=== PATIENT | female | born 1985 | race Hispanic/Latino ===

== ENCOUNTER 2024-08-12 18:37 | Observation (INO) | payer BC, SELFPAY ==
[2024-08-12] VITALS (10 sets, daily range): BP systolic 134–162; BP diastolic 77–93; PULSE 87–101; RESP 16–18; TEMP 36.7–37.1; BMI 38.0
[2024-08-12 17:16] LABS: Protein, Urine (Random) < 6.0 mg/dL (<11.9); Protein:Creat Ratio 217 mg/g CRE (0-200)
[2024-08-12 17:37] LABS: Hematocrit 32.4 % (37-47); Mean Corpuscular Hgb 26.8 pg (27.0-32.0); Mean Corpuscular Volume 78.8 fL (81-99); Mean Platelet Vol. 11.5 fl (6.2-12.0); Platelet Count 242 K/mm3 (150-450); RBC Distribution Width CV 14.4 % (11.6-14.6); RBC Distribution Width SD 40.7 fl (35.1-43.9); Red Blood Count 4.11 M/mm3 (4.2-5.4); White Blood Count 14.7 K/mm3 (4.4-11.0)
[2024-08-12 17:56] LABS: AST(SGOT) 10 U/L (15-37); Alanine Aminotransfer ALT/SGPT 13 U/L (13-56); Creatinine, Serum 0.48 mg/dL (0.55-1.02); EST Glomerular Filtration Rate 155 mL/min (>60); Est Glom Filt Rate - Afr Amer 187 mL/min (>60); Estimated Creatinine Clearance 184.98 ml/min; Uric Acid 3.7 mg/dL (2.6-6.0)
--- NOTE | 2024-08-12 18:35 | PCM.HP.OB ---
HPI - General General Date of Service: 08/12/24 Chief Complaint: elevated BP at home HPI Narrative LAWRENCE ESCALANTE, is a 38 F who presents with elevated BP at home. She has possible underlying cHTN. Had elevated blood pressure November 2023 and then at 9 week gestation. She was given a blood pressure cuff to check her blood pressures at home given concern for cHTN. She reports elevated blood pressures over the weekend but she thought she was not using the cuff correctly. Today she had a blood pressure in 160's at home and called into the office. She was instructed to come to L&D for evaluation. She feels well. She is anxious regarding blood pressures and being on L&D. She denies MOCK, vision changes, upper abdominal pain, N/V, malaise. Denies ctx, vb, lof. Good FM. She feels well. PFSH PFSH Home Medications ?Medication ?Instructions ?Recorded ?Last Taken ?Type ferrous sulfate 325 mg (65 mg 325 mg PO QODAY 08/12/24 08/09/24 11:00 History iron) tablet (Feosol) 325 mg Allergy/AdvReac Type Severity Reaction Status Date / Time shrimp Allergy Severe Other Verified 08/12/24 16:38 NST FHR Rate Baby A Baseline: 150 Variability:: Moderate Accelerations:: 15 x 15 Decelerations:: None NST Reactive:: Yes FHR Category:: Category I Uterine Activity:: irregular Vital Signs Vital Signs Vital Signs: 08/12/24 16:30 08/12/24 16:30 08/12/24 16:30 Temperature 98.4 F Temperature Source Temporal Pulse Rate Respiratory Rate 18 Blood Pressure BP Systolic BP Diastolic 08/12/24 16:48 08/12/24 16:48 08/12/24 16:56 Temperature Temperature Source Pulse Rate 96 Respiratory Rate Blood Pressure 162/93 H 153/80 H BP Systolic 162 153 BP Diastolic 93 80 08/12/24 16:56 08/12/24 17:14 08/12/24 17:14 Temperature Temperature Source Pulse Rate 88 93 Respiratory Rate Blood Pressure 153/92 H BP Systolic 153 BP Diastolic 92 08/12/24 17:28 08/12/24 17:28 08/12/24 17:44 Temperature Temperature Source Pulse Rate 88 Respiratory Rate Blood Pressure 144/82 H 137/78 H BP Systolic 144 137 BP Diastolic 82 78 08/12/24 17:44 08/12/24 17:58 08/12/24 17:58 Temperature Temperature Source Pulse Rate 87 87 Respiratory Rate Blood Pressure 152/91 H BP Systolic 152 BP Diastolic 91 Weight Weight: 221 lb 9.033 oz Body Mass Index (BMI) 38.0 Physical Exam Const alert and no apparent distress Constitutional Narrative: anxious General Appearance: comfortable HEENT normocephalic Resp normal respiratory effort GI soft to palpation, non-tender and non-distended Extremity normal to inspection Neuro deep tendon reflexes 2+ bilaterally Labs Labs Labs: Hct 32.4 % (37-47) L Hgb 11.0 g/dL (12.0-15.0) L Assessment & Plan (1) 31 weeks gestation of : (2) Elevated blood pressure affecting , antepartum: PLAN: First blood pressure was severe range, followed by mild range blood pressures. Discussed concern for underlying cHTN vs gHTN. She has no symptoms of pre eclampsia and feels well. Labs WNL and without evidence of pre eclampsia. Reflexes 2+ on exam and no significant swelling. Will start Procardia 30 mg and BMZ x 2 after discussion of r/b/a with patient. Admit patient for observation overnight. Questions answered and patient well counseled and agreeable to plan of care. Discussed indications for delivery. Discussed if stable and discharged to home tomorrow, will need blood pressure check later this week in the office and to bring her BP cuff with her to appointment. SCD's for DVT prophylaxis. Saline lock IV. Ok for regular diet at this time. (3) Obesity affecting :
[2024-08-12] MEDS: Betamethasone/Betamethasone 30 MG/5 ML Vial 12 MG IM (18:55)
[2024-08-12] MEDS: NIFEdipine 30 MG Tablet PO (19:44)
[2024-08-13 02:05] VITALS: BP 145/90; PULSE 91; RESP 16; TEMP 36.9
[2024-08-13 06:01] VITALS: BP 134/79; PULSE 102; RESP 16; TEMP 36.6
[2024-08-13 08:13] VITALS: BP 124/79; PULSE 96; RESP 18; TEMP 36.8
[2024-08-13 08:25] VITALS: PULSE 100; O2SAT 97
[2024-08-13 08:37] VITALS: BP 124/79; PULSE 96; RESP 18; TEMP 36.8
--- NOTE | 2024-08-13 08:52 | PN.OBGYN_ITS ---
Subjective Subjective Denies complaints Objective Data Objective Data Vital Signs: Vital Signs Temp Pulse Resp BP Pulse Ox O2 Del Method 98.2 F 96 18 124/79 H 97 Room Air 08/13/24 08:37 08/13/24 08:37 08/13/24 08:37 08/13/24 08:37 08/13/24 08:25 08/13/24 08:37 Oxygen Delivery Method Room Air Weight: 221 lb 9.033 oz Body Mass Index (BMI) 38.0 Lab / Micro Data 08/12/24 17:25 08/12/24 17:25 Labs: Laboratory Results - last 24 hr 08/12/24 16:45: U Random Total Protein < 6.0, Urine Creatinine 25.80, P rotein/Creatinin Ratio 217 H 08/12/24 17:25: WBC 14.7 H, RBC 4.11 L, Hgb 11.0 L, Hct 32.4 L, MCV 78.8 L, MCH 26.8 L, MCHC 34.0, RDW Std Deviation 40.7, RDW Coeff of Ida 14.4, Plt Count 242, MPV 11.5, Creatinine 0.48 L, Estim Creat Clear Calc 184.98, Est GFR (MDRD) Af Amer 187, Est GFR (MDRD) Non-Af 155, Uric Acid 3.7, AST 10 L, ALT 13 Micro: Microbiology 08/12/24 21:00 Genital vaginal Group B Streptococcus (PCR) - Final Physical Exam Const alert, oriented x3 and no apparent distress Assessment & Plan (1) Chronic hypertension affecting : COMMENT: HD#2 PLAN: Plan D/c home on procardia XL Follow up at office at 4pm today for BMZ#2
--- NOTE | 2024-08-13 08:54 | DCINST_ITS ---
Discharge Instructions Diet Discharge Diet: No restrictions DC O2, CPAP, BIPAP needs Home O2 Discharge instructions: No Dressing / Incision Discharge Activity: Return to Normal Activity Weight Bearing Status: Weight bearing as tolerated Follow Up Care Please Follow Up With: Ann-Marie Silva MD When: today at 4pm Test Results: Test results from this visit will be discussed in further detail at your follow- up appointment, if applicable. Discharge Plan Admission Admit Date/Time: 08/12/24 18:37 Primary Reason for Your Visit: CHronic hypertension Attending Provider: Nusrat Goodman Primary Care Provider: Care PhysicianKatherine Primary Discharge Orders/Prescriptions Prescriptions: New nifedipine 30 mg Tablet Extended Release 24hr 30 mg PO DAILY Qty: 30 1RF No Action ferrous sulfate [Feosol] 325 mg (65 mg iron) tablet 325 mg PO QODAY Referrals / Follow Up: Care Physician,No Primary [Primary Care Provider] - Disposition Disposition (needs filled in before D/C Order can be placed): Home, Self Care
--- NOTE | 2024-08-13 09:03 | NURSING ---
Dr Silva in room. reviewed discharge instructions with pt. Pt verbalized understanding
== END 2024-08-13 10:00 | disposition home or self-care (01) ==
LOC: WPOUT 08-13 08:40 → WP 08-13 08:40
PROVIDERS: Admitting Provider Advanced Practice Midwife; Referring Provider Advanced Practice Midwife; Visit Provider Advanced Practice Midwife
DX: O10.013 Pre-existing essential hypertension complicating pregnancy, third trimester (principal); Z3A.31 31 weeks gestation of pregnancy; O09.513 Supervision of elderly primigravida, third trimester; O99.213 Obesity complicating pregnancy, third trimester
CPT/HCPCS: 36415; 59025; 59050; 82565; 82570; 84156; 84450; 84460; 84550; 85027; 87077; 87081; 87653; 96372; 99221; G0378; J0702